=== PATIENT | female | born 1965 | race Caucasian/White ===

== ENCOUNTER 2017-09-05 14:42 | Emergency (ER) | payer OTHER ==
[~2017-09-05 14:42] MED LIST: ALB0.5 INH; ALBU8.5H12 IH; BCP PO; CEPH500C24 PO; CET10 PO; CYC10 PO; CYCL10TA29 PO; DOC100 PO; GAB100 PO; GABA-490 PO; GABA-549; GUALA600 PO; HYDR-4309 PO; IPRA3AMP36 IH; LOR10 PO; LOR5/325 PO; NORG1TAB74 PO; NORG1TAB75; OXYC-865 PO; PER PO; POTASSIUM PO; PRED-1 PO; PRED20TA6 PO; PREDNISONE PO; PROM-110 PO; PSEU-75 PO; RIVA20TA PO; TRAM-420; TRAZ-133 PO; VALA100059; ZOLP-358
--- NOTE | 2017-09-05 14:52 | ER Report ---
History and Physical Time Seen By MD: 14:52 Hx. of Stated Complaint: UPPER CENTER ABD PAIN. PROGRESSIVELY GOTTEN WORSE THE LAST COUPLE DAYS. NOT EATING MUCH. BACK AND FORTH BETWEEN DIARRHEA AND CONSTIPATION. FEVER OF 101 THIS MORNING HPI/ROS CHIEF COMPLAINT: Nausea, vomiting and abdominal pain HISTORY OF PRESENT ILLNESS: This is a 52-year-old female who presents to the emergency department for nausea, vomiting and abdominal pain. Patient states that she had nausea, vomiting and diarrhea about one week ago took some Imodium for her diarrhea now she has firm stools, no blood in the diarrhea or the current from stools. Patient also states that she's had nausea and vomiting however the vomiting has since then resolved but she still has some underlying nausea. She does have right upper quadrant pain, she was told that she had gallbladder sludge a number of years ago. Patient also states that she thought that these were just nerves that she is getting in 3 weeks however today the pain and the nausea are such that she became concerned and decided to come in for further evaluation. Patient also states that she had a fever today and took ibuprofen to help with the aches and the fevers. No rashes, visual changes or any other complaints. REVIEW OF SYSTEMS: Constitutional: As above. Eyes: No discharge. ENT: No sore throat. Cardiovascular: No chest pain, no palpitations. Respiratory: No cough, no shortness of breath. Gastrointestinal: As above. Genitourinary: No hematuria. Musculoskeletal: No back pain. Skin: No rashes. Neurological: No headache. Allergies: Coded Allergies: oxaprozin (Verified Adverse Reaction, Unknown, 09/05/17) Uncoded Allergies: steri strips (Allergy, Intermediate, UNKNOWN, 10/17/13) SUN SENITIVITY (Allergy, Mild, RASH, 07/21/12) TAPE, ESPECIALLY PAPER (Allergy, Mild, RASH, 07/21/12) TEGADERM (Allergy, Mild, BLISTERS, 07/21/12) Home Meds Reported Medications Apixaban (ELIQUIS) 5 Mg Tablet, 5 MG PO BID 09/05/17 Valacyclovir Hcl (VALACYCLOVIR) 1,000 Mg Tablet, #2 07/06/16 Norgestimate-Ethinyl Estradiol (TRI-SPRINTEC) 1 Each Tablet, #28 07/06/16 Zolpidem Tartrate (ZOLPIDEM TARTRATE) 10 Mg Tablet, #30 07/06/16 Cetirizine Hcl (Zyrtec) 10 Mg Tab, 10 MG PO QDAY 07/21/12 Albuterol Sulfate (Albuterol Sulfate Hfa) 8.5 Gm Hfa.aer.ad, 8.5 GM IH PRN 07/21/12 Trazodone Hcl (Trazodone Hcl) 100 Mg Tablet, 25 MG PO QHS, 0 Refills 09/25/10 Cyclobenzaprine Hcl (Flexeril) 10 Mg Tab, 10 MG PO QAM, 0 Refills 09/25/10 Discontinued Reported Medications Rivaroxaban 20 Mg (XARELTO 20 MG) 20 Mg Tablet, PO QDAY, TAB 07/06/16 Tramadol Hcl (TRAMADOL HCL) 50 Mg Tablet 07/06/16 Gabapentin (GABAPENTIN) 300 Mg Capsule 07/06/16 Past Medical/Surgical History Patient has a past medical and surgical history of one episode of A. fib secondary to surgery, Follett filter, asthma, cyst on breast, scoliosis, dentures, wears contacts, hernia repair 2, 3 back surgeries. Reviewed Nurses Notes: Yes Hx Smoking: No Smoking Status: Never Smoker Hx Substance Use Disorder: No Hx Alcohol Use: No Constitutional Vital Sign - Last 24 Hours 09/05/17 09/05/17 14:49 18:09 Temp 97.6 Pulse 97 78 Resp 14 16 B/P (MAP) 146/87 119/79 (92) Pulse Ox 97 97 O2 Delivery Room Air Room Air Intake and Output 09/05/17 09/05/17 09/06/17 15:00 23:00 07:00 Intake Total 1000 ml Balance 1000 ml Physical Exam General Appearance: The patient is alert, has no immediate need for airway protection and no signs of toxicity. Eyes: Pupils equal and round no pallor or injection. ENT, Mouth: Mucous membranes are moist. Respiratory: There are no retractions, lungs are clear to auscultation. Cardiovascular: Regular rate and rhythm, no murmurs, clicks or rubs. Gastrointestinal: Abdomen is soft, positive Saavedra sign. No masses, hyperactive bowel sounds. Neurological: Alert and oriented 4. Moving all extremities. Following all commands. No focal neuro deficits. Skin: Warm and dry, no rashes. Musculoskeletal: Neck is supple non tender. Extremities are nontender, nonswollen and have full range of motion. DIFFERENTIAL DIAGNOSIS: After history and physical exam differential diagnosis was considered for abdominal pain in a female including but not limited to ovarian cyst, pelvic inflammatory disease, gallbladder disease, gastroenteritis , ovarian torsion, urinary tract infection, and appendicitis. Medical Decision Making Data Points Result Diagram: 09/05/17 1510 09/05/17 1510 Laboratory Hematology Test 09/05/17 15:10 Red Blood Count 4.46 M/uL (4.17-5.56) Mean Corpuscular Volume 84.8 fL (80.0-96.0) Mean Corpuscular Hemoglobin 28.3 pg (26.0-33.0) Mean Corpuscular Hemoglobin Concent 33.4 g/dL (32.0-36.0) Red Cell Distribution Width 14.9 % (11.5-14.5) Mean Platelet Volume 7.2 fL (7.2-11.1) Neutrophils (%) (Auto) 54.9 % (39.4-72.5) Lymphocytes (%) (Auto) 34.8 % (17.6-49.6) Monocytes (%) (Auto) 8.4 % (4.1-12.4) Eosinophils (%) (Auto) 1.2 % (0.4-6.7) Basophils (%) (Auto) 0.7 % (0.3-1.4) Nucleated RBC Relative Count (auto) 0.0 /100WBC Neutrophils # (Auto) 3.5 K/uL (2.0-7.4) Lymphocytes # (Auto) 2.2 K/uL (1.3-3.6) Monocytes # (Auto) 0.5 K/uL (0.3-1.0) Eosinophils # (Auto) 0.1 K/uL (0.0-0.5) Basophils # (Auto) 0.0 K/uL (0.0-0.1) Nucleated RBC Absolute Count (auto) 0.00 K/uL Urine Color Yellow Urine Clarity Slightly-cloudy Urine pH 5.0 pH (4.8-9.5) Urine Specific [place] 1.011 Urine Protein Negative mg/dL (NEGATIVE) Urine Glucose (UA) Negative mg/dL (NEGATIVE) Urine Ketones Negative mg/dL (NEGATIVE) Urine Blood Small (NEGATIVE) Urine Nitrite Negative (NEGATIVE) Urine Bilirubin Negative (NEGATIVE) Urine Urobilinogen Negative mg/dL (0.2-1.9) Urine Leukocyte Esterase Negative (NEGATIVE) Urine RBC 1 /HPF (0-2/HPF) Urine WBC <1 /HPF (0-5/HPF) Urine Squamous Epithelial Cells Many /LPF (</=FEW) Urine Bacteria Negative /HPF (NONE-FEW) Urine Mucus Few /HPF (NONE-FEW) Sodium Level 139 mmol/L (137-145) Potassium Level 3.8 mmol/L (3.5-5.0) Chloride Level 107 mmol/L (98-107) Carbon Dioxide Level 23 mmol/L (22-31) Blood Urea Nitrogen 15 mg/dl (7-18) Creatinine 0.70 mg/dl (0.52-1.04) Glomerular Filtration Rate Calc > 60.0 Random Glucose 117 mg/dl (75-110) Calcium Level 9.1 mg/dl (8.4-10.2) Total Bilirubin 0.3 mg/dl (0.2-1.3) Aspartate Amino Transf (AST/SGOT) 17 U/L (0-35) Alanine Aminotransferase (ALT/SGPT) 20 U/L (0-56) Alkaline Phosphatase 84 U/L (0-126) Total Protein 6.9 g/dl (6.3-8.2) Albumin 3.5 g/dl (3.5-5.0) Lipase 69 U/L (23-300) Chemistry Test 09/05/17 15:10 White Blood Count 6.4 k/uL (4.5-11.0) Red Blood Count 4.46 M/uL (4.17-5.56) Hemoglobin 12.6 g/dL (12.0-16.0) Hematocrit 37.8 % (34.0-47.0) Mean Corpuscular Volume 84.8 fL (80.0-96.0) Mean Corpuscular Hemoglobin 28.3 pg (26.0-33.0) Mean Corpuscular Hemoglobin Concent 33.4 g/dL (32.0-36.0) Red Cell Distribution Width 14.9 % (11.5-14.5) Platelet Count 374 K/uL (150-450) Mean Platelet Volume 7.2 fL (7.2-11.1) Neutrophils (%) (Auto) 54.9 % (39.4-72.5) Lymphocytes (%) (Auto) 34.8 % (17.6-49.6) Monocytes (%) (Auto) 8.4 % (4.1-12.4) Eosinophils (%) (Auto) 1.2 % (0.4-6.7) Basophils (%) (Auto) 0.7 % (0.3-1.4) Nucleated RBC Relative Count (auto) 0.0 /100WBC Neutrophils # (Auto) 3.5 K/uL (2.0-7.4) Lymphocytes # (Auto) 2.2 K/uL (1.3-3.6) Monocytes # (Auto) 0.5 K/uL (0.3-1.0) Eosinophils # (Auto) 0.1 K/uL (0.0-0.5) Basophils # (Auto) 0.0 K/uL (0.0-0.1) Nucleated RBC Absolute Count (auto) 0.00 K/uL Urine Color Yellow Urine Clarity Slightly-cloudy Urine pH 5.0 pH (4.8-9.5) Urine Specific [place] 1.011 Urine Protein Negative mg/dL (NEGATIVE) Urine Glucose (UA) Negative mg/dL (NEGATIVE) Urine Ketones Negative mg/dL (NEGATIVE) Urine Blood Small (NEGATIVE) Urine Nitrite Negative (NEGATIVE) Urine Bilirubin Negative (NEGATIVE) Urine Urobilinogen Negative mg/dL (0.2-1.9) Urine Leukocyte Esterase Negative (NEGATIVE) Urine RBC 1 /HPF (0-2/HPF) Urine WBC <1 /HPF (0-5/HPF) Urine Squamous Epithelial Cells Many /LPF (</=FEW) Urine Bacteria Negative /HPF (NONE-FEW) Urine Mucus Few /HPF (NONE-FEW) Glomerular Filtration Rate Calc > 60.0 Calcium Level 9.1 mg/dl (8.4-10.2) Total Bilirubin 0.3 mg/dl (0.2-1.3) Aspartate Amino Transf (AST/SGOT) 17 U/L (0-35) Alanine Aminotransferase (ALT/SGPT) 20 U/L (0-56) Alkaline Phosphatase 84 U/L (0-126) Total Protein 6.9 g/dl (6.3-8.2) Albumin 3.5 g/dl (3.5-5.0) Lipase 69 U/L (23-300) Urinalysis Test 09/05/17 15:10 Urine Color Yellow Urine Clarity Slightly-cloudy Urine pH 5.0 pH (4.8-9.5) Urine Specific [place] 1.011 Urine Protein Negative mg/dL (NEGATIVE) Urine Glucose (UA) Negative mg/dL (NEGATIVE) Urine Ketones Negative mg/dL (NEGATIVE) Urine Blood Small (NEGATIVE) Urine Nitrite Negative (NEGATIVE) Urine Bilirubin Negative (NEGATIVE) Urine Urobilinogen Negative mg/dL (0.2-1.9) Urine Leukocyte Esterase Negative (NEGATIVE) Urine RBC 1 /HPF (0-2/HPF) Urine WBC <1 /HPF (0-5/HPF) Urine Squamous Epithelial Cells Many /LPF (</=FEW) Urine Bacteria Negative /HPF (NONE-FEW) Urine Mucus Few /HPF (NONE-FEW) EKG/Imaging Imaging Location: [facility] - [place] Patient: Emily Garibay : 1965 Visit/Account:[id number] [facility] of [facility]: 09/05/2017 ABDOMEN/PELVIS WITH CONTRAST COMPARISONS: None. ADDITIONAL PERTINENT HISTORY: Abdominal pain with nausea and vomiting and diarrhea. TECHNIQUE: Multiple axial images were obtained from the lung bases through the lesser trochanters before and after the IV administration of IV contrast. One of the following dose optimization techniques was utilized in the performance of this exam: Automated exposure control; adjustment of the mA and/or kV according to the patient's size; or use of an iterative reconstruction technique. Specific details can be referenced in the facility's radiology CT exam operational policy. CONTRAST: 75 ml of Isovue-370 FINDINGS: Lung bases: Negative. Free air and free fluid: None. Liver: Negative. Spleen: Negative. Kidneys, ureters and urinary bladder: Negative. Adrenal glands: Negative. Pancreas: Negative. Gallbladder: Negative. Bowel and mesentery: Increased stool noted along the colon. Otherwise negative. Pelvic contents: Negative Lymph node assessment: Negative. Retroperitoneum: Negative. Abdominal vasculature: Left common femoral vein and iliac vein stent on the left. Otherwise negative Surrounding soft tissues: Negative. Osseous structures: Extensive postoperative changes with posterior interbody fusion of the lumbar spine. No acute appearing bony abnormalities. IMPRESSION: 1. Increased stool compatible with underlying constipation. 2. No acute intra-abdominal or intrapelvic process. Report Dictated By: Dontae Jama MD at 09/05/2017 5:34 PM Report E-Signed By: Dontae Jama MD at 09/05/2017 5:38 PM WSN:[id number] Location: [facility] - [place] Patient: Emily Garibay : 1965 Visit/Account:[id number] Date of Sevice: 09/05/2017 EXAMINATION: Limited right upper quadrant ultrasound Additional Pertinent history: Abdominal pain. COMPARISON STUDIES: None. FINDINGS: Gallbladder: no stones, sludge, wall thickening or pericholecystic fluid. Negative sonographic Saavedra's sign. Liver: No focal abnormality. Portal vein is patent. No ascites. Common duct: normal 4.7 mm. Pancreas: Portion the pancreas visualized is within normal is. The distal portion obscured by bowel gas. Right kidney: negative Proximal IVC/Aorta: negative IMPRESSION: Unremarkable exam. No acute abnormality. Report Dictated By: Pavan Soler at 09/05/2017 5:03 PM Report E-Signed By: Pavan Soler at 09/05/2017 5:05 PM WSN:[id number] ED Course/Re-evaluation Clinical Indication for ER IV: Hydration, IV Access ED Course The patient was admitted to a room. A history of physical obtained. Differential diagnoses were considered. An IV was started. A CBC, CMP, lipase were obtained. UA was obtained. UA unremarkable. Lab studies unremarkable.Negative gallbladder ultrasound. Abdomen pelvis CT showing constipation otherwise unremarkable CT. Patient was given a 1 L normal saline bolus, 4 mg IV Zofran, 4 mg IV morphine which did seem to help the pain. I did review the lab studies and the ultrasound and CT with the patient. I did tell her that the CT as showing constipation. I did offer the patient an enema in the emergency department she did decline. I did send her home with bottle of mag citrate. Also instructed the patient follow up with her primary care as scheduled. Return to the emergency department for any other concerns or worsening symptoms. Patient exposed understanding of was discharged home. 09/05/2017 6:00:32 pm I did review the CT results with the patient, did tell her that she has constipation which is likely the cause of her pain and bloating. It tell patient that we can give her an enema here and the patient declined. I then offered her mag citrate to take when she gets home, the patient is agreeable to this. Decision to Disposition Date: Sep 05, 2017 Decision to Disposition Time: 18:01 Depart Departure Latest Vital Signs Vital Signs Date Time Temp Pulse Resp B/P (MAP) Pulse Ox O2 Delivery O2 Flow Rate FiO2 09/05/17 18:09 78 16 119/79 (92) 97 Room Air 09/05/17 14:49 97.6 Impression: Primary Impression: Constipation Condition: Improved Disposition: HOME OR SELF-CARE Referrals: ROSALVA WIGGINS MD (PCP) Patient Instructions: Constipation (ED) Additional Instructions: Your abdominal pain appears to be consistent with constipation as noted on the CAT scan. When you get home be sure to take the mag situate as directed. Drink plenty of water. Get plenty of rest. Follow-up with your primary care provider within one week for reevaluation. Continue with your current medications. Return to the emergency department for any other concerns or worsening symptoms. Problem Qualifiers Primary Impression: Constipation Constipation type: drug induced constipation Qualified Codes: K59.03 - Drug induced constipation KAMERON MUHAMMAD TRAIN BRAKER-BC Sep 05, 2017 14:52
[2017-09-05] MEDS ORDERED: APIX5TAB PO (14:54)
[2017-09-05] MEDS ORDERED: NS(*) 0.9% 1000 ML BAG 1,000 ML IV ONE (15:06)
[2017-09-05] MEDS ORDERED: ONDANSETRON 4 MG/2 ML VIAL IVP ONE (15:10)
[2017-09-05] MEDS ORDERED: MORPHINE 4 MG/ML SDV IVP ONE (15:10)
[2017-09-05 15:18] LABS: PLATELET COUNT, AUTOMATED 374 K/uL (150-450)
[2017-09-05] MEDS ORDERED: IOPAMIDOL 76% 100 ML INFUS BTL 100 ML ONE (17:09)
--- NOTE | 2017-09-05 17:09 | RADIOLOGY IMAGING REPORT ---
FACILITY: [facility] - [place] PATIENT NAME: Emily Garibay : 1965 MR: [id number] V: [id number] EXAM DATE: ORDERING PHYSICIAN: KAMERON MUHAMMAD TECHNOLOGIST: Location: [facility] [place] Patient: Emily Garibay : 1965 Visit/Account:[id number] Date of Sevice: 09/05/2017 EXAMINATION: Limited right upper quadrant ultrasound Additional Pertinent history: Abdominal pain. COMPARISON STUDIES: None. FINDINGS: Gallbladder: no stones, sludge, wall thickening or pericholecystic fluid. Negative sonographic Saavedra 's sign. Liver: No focal abnormality. Portal vein is patent. No ascites. Common duct: normal 4.7 mm. Pancreas: Portion the pancreas visualized is within normal is. The distal portion obscured by bowel g as. Right kidney: negative Proximal IVC/Aorta: negative IMPRESSION: Unremarkable exam. No acute abnormality. Report Dictated By: Pavan Soler at 09/05/2017 5:03 PM Report E-Signed By: Pavan Soler at 09/05/2017 5:05 PM WSN:[id number]
--- NOTE | 2017-09-05 17:41 | RADIOLOGY IMAGING REPORT ---
FACILITY: [facility] - [place] PATIENT NAME: Emily Garibay : 1965 MR: [id number] V: [id number] EXAM DATE: ORDERING PHYSICIAN: KAMERON MUHAMMAD TECHNOLOGIST: Location: [facility] - [place] Patient: Emily Garibay : 1965 Visit/Account:[id number] Date of Sevice: 09/05/2017 ABDOMEN/PELVIS WITH CONTRAST COMPARISONS: None. ADDITIONAL PERTINENT HISTORY: Abdominal pain with nausea and vomiting and diarrhea. TECHNIQUE: Multiple axial images were obtained from the lung bases through the lesser trochanters bef ore and after the IV administration of IV contrast. One of the following dose optimization technique s was utilized in the performance of this exam: Automated exposure control; adjustment of the mA and/ or kV according to the patient's size; or use of an iterative reconstruction technique. Specific de tails can be referenced in the facility's radiology CT exam operational policy. CONTRAST: 75 ml of Isovue-370 FINDINGS: Lung bases: Negative. Free air and free fluid: None. Liver: Negative. Spleen: Negative. Kidneys, ureters and urinary bladder: Negative. Adrenal glands: Negative. Pancreas: Negative. Gallbladder: Negative. Bowel and mesentery: Increased stool noted along the colon. Otherwise negative. Pelvic contents: Negative Lymph node assessment: Negative. Retroperitoneum: Negative. Abdominal vasculature: Left common femoral vein and iliac vein stent on the left. Otherwise negative Surrounding soft tissues: Negative. Osseous structures: Extensive postoperative changes with posterior interbody fusion of the lumbar spi ne. No acute appearing bony abnormalities. IMPRESSION: 1. Increased stool compatible with underlying constipation. 2. No acute intra-abdominal or intrapelvic process. Report Dictated By: Dontae Jama MD at 09/05/2017 5:34 PM Report E-Signed By: Dontae Jama MD at 09/05/2017 5:38 PM WSN:[id number]
[2017-09-05] MEDS ORDERED: MAGNESIUM CITRATE 300 ML BTL PO ONE (18:05)
[2017-09-05 18:09] VITALS: BP 119/79
== END 2017-09-05 18:10 | disposition home or self-care (01) ==
LOC: ER 14:50
DX: K59.03 Drug induced constipation (principal)
CPT/HCPCS: 74177; 76705; 81001; 83690; 85025; 96361; 96374; 96375; 99284; J2270; J2405; J7030; Q9967; 82040; 82247; 82310; 82374; 82435; 82565; 82947; 84075; 84132; 84155; 84295; 84450; 84460; 84520

== ENCOUNTER 2018-01-13 11:18 | Emergency (ER) | payer OTHER ==
[~2018-01-13 11:18] MED LIST changes: +APIX5TAB PO; -HYDR-4309 PO; +HYDR-653 PO
--- NOTE | 2018-01-13 11:25 | ER Report ---
History and Physical Time Seen By MD: 11:25 HPI/ROS CHIEF COMPLAINT: Left lower extremity swelling and pain HISTORY OF PRESENT ILLNESS: Patient is a 52-year-old female here with complaints of left lower extremity swelling and pain in the setting of eliquis with a prior history of recurrent DVTs. Patient reports that she has recently been getting over pneumonia. She denies new chest pain or shortness of breath however reports pain directly behind the left knee and the proximal calf. Patient is neurovascularly intact with good perfusion distal to site of pain. Patient is afebrile, hemodynamically stable in no acute distress. REVIEW OF SYSTEMS: Constitutional: No fever, no chills. Eyes: No discharge. ENT: No sore throat. Cardiovascular: No chest pain, no palpitations. Respiratory: No cough, no shortness of breath. Gastrointestinal: No abdominal pain, no vomiting. Genitourinary: No hematuria. Musculoskeletal: Left lower extremity pain and swelling distal to the knee. Skin: No rashes. Neurological: Neurovascularly intact in the left lower extremity distal to the pain site. Allergies: Coded Allergies: oxaprozin (Verified Adverse Reaction, Unknown, 01/13/18) Uncoded Allergies: steri strips (Allergy, Intermediate, UNKNOWN, 10/17/13) SUN SENITIVITY (Allergy, Mild, RASH, 07/21/12) TAPE, ESPECIALLY PAPER (Allergy, Mild, RASH, 07/21/12) TEGADERM (Allergy, Mild, BLISTERS, 07/21/12) Home Meds Reported Medications Sertraline Hcl (ZOLOFT) 100 Mg Tablet, 1 TAB PO QDAY, TAB 01/13/18 Montelukast Sodium 4 Mg Chew Tab (SINGULAIR 4 MG CHEW TAB) 4 Mg Tab.chew, 1 TAB PO QDAY, TAB.CHEW 01/13/18 Apixaban (ELIQUIS) 5 Mg Tablet, 5 MG PO BID 09/05/17 Valacyclovir Hcl (VALACYCLOVIR) 1,000 Mg Tablet, #2 07/06/16 Zolpidem Tartrate (ZOLPIDEM TARTRATE) 10 Mg Tablet, #30 07/06/16 Cetirizine Hcl (Zyrtec) 10 Mg Tab, 10 MG PO QDAY 07/21/12 Albuterol Sulfate (Albuterol Sulfate Hfa) 8.5 Gm Hfa.aer.ad, 8.5 GM IH PRN 07/21/12 Trazodone Hcl (Trazodone Hcl) 100 Mg Tablet, 25 MG PO QHS, 0 Refills 09/25/10 Cyclobenzaprine Hcl (Flexeril) 10 Mg Tab, 10 MG PO QAM, 0 Refills 09/25/10 Discontinued Reported Medications Norgestimate-Ethinyl Estradiol (TRI-SPRINTEC) 1 Each Tablet, #28 07/06/16 Hx Smoking: No Smoking Status: Never Smoker Hx Substance Use Disorder: No Hx Alcohol Use: No Constitutional Vital Sign - Last 24 Hours 01/13/18 11:28 Temp 97.9 Pulse 91 Resp 16 B/P (MAP) 134/88 Pulse Ox 100 O2 Delivery Room Air Physical Exam General Appearance: The patient is alert, has no immediate need for airway protection and no signs of toxicity. Eyes: Pupils equal and round no pallor or injection. ENT, Mouth: Mucous membranes are moist. Respiratory: There are no retractions, lungs are clear to auscultation. Cardiovascular: Regular rate and rhythm. Gastrointestinal: Abdomen is soft and non tender, no masses, bowel sounds normal. Neurological: Neurovascular exam intact in the distal extremities Skin: Warm and dry, no rashes. Musculoskeletal: Neck is supple non tender. Edema and tender to palpation distal to the left knee with point of maximum tenderness in the proximal left calf, popliteal fossa DIFFERENTIAL DIAGNOSIS: After history and physical exam differential diagnosis was considered for DVT, cellulitis, thrombophlebitis, abscess, bursitis Medical Decision Making EKG/Imaging Imaging See radiology duplex report ED Course/Re-evaluation ED Course Patient is a 52-year-old female here with complaints of left lower extremity swelling and pain just distal to the popliteal fossa in the setting of a DVT history on eloquent edwin Tatum. Patient also has an IVC filter in place. Ultrasound duplex of the left lower extremity shows that the vasculature was almost completely collapsible with a small area of near complete collapsibility. Distal extremity has good perfusion with capillary refill less than 2 seconds, intact sensation with no skin discoloration. I updated the patient and she vo iced understanding that there was likely no need for further intervention at this time. I advised the patient to continue using SCDs and return promptly should develop any fevers, redness of the skin, numbness or weakness. Decision to Disposition Date: Jan 13, 2018 Decision to Disposition Time: 12:11 Depart Departure Latest Vital Signs Vital Signs Date Time Temp Pulse Resp B/P (MAP) Pulse Ox O2 Delivery O2 Flow Rate FiO2 01/13/18 11:28 97.9 91 16 134/88 100 Room Air Impression: Primary Impression: Leg pain, left Additional Impression: Left leg swelling Condition: Improved Disposition: HOME OR SELF-CARE Referrals: ROSALVA WIGGINS MD (PCP) Patient Instructions: Leg Pain (ED) Additional Instructions: Please drink plenty of water. Please follow-up with her family doctor in the next several days for follow-up evaluation and care. Please return promptly if you develop numbness, tingling, worsening pain, redness or discoloration of the leg. Problem Qualifiers DANUTA RAYA DO Jan 13, 2018 11:25
[2018-01-13 11:28] VITALS: BP 134/88
[2018-01-13] MEDS ORDERED: MONT4TAB PO (11:31)
[2018-01-13] MEDS ORDERED: SERT-173 PO (11:31)
--- NOTE | 2018-01-13 12:25 | RADIOLOGY IMAGING REPORT ---
[place] [facility] [place]: Emily Garibay : 1965 MR: [id number] V: [id number] EXAM DATE: ORDERING PHYSICIAN: DANUTA RAYA TECHNOLOGIST: Location: [facility] Patient: Emily Garibay : 1965 Visit/Account:[id number] Date of Sevice: 01/13/2018 VENOUS DOPP LOW LEFT EXTREMITY HISTORY: swelling, dvt hx VENOUS DOPP LOW LEFT EXTREMITY EXAMINATION: Unilateral lower extremity deep vein duplex Doppler ultrasound Additional Pertinent history: none COMPARISON STUDIES: none FINDINGS: Grayscale compression, duplex and color Doppler interrogation of the left lower extremity deep veins from common femoral vein to proximal calf was performed. The greater saphenous vein was evaluated usi ng similar technique. Common femoral vein negative Femoral vein negative Deep femoral vein - negative Popliteal vein small focus of noncompressible clot in the distal popliteal vein. Visualized deep calf veins negative Greater saphenous vein in the proximal thigh negative Popliteal fossa: negative IMPRESSION: 1. Negative left leg for DVT except in the distal popliteal artery has a small focus of noncompressib le clot.. Report Dictated By: Keenan Membreno MD at 01/13/2018 12:17 PM Report E-Signed By: Keenan Membreno MD at 01/13/2018 12:20 PM WSN:[id number]
== END 2018-01-13 12:30 | disposition home or self-care (01) ==
LOC: ER 11:27
DX: M79.662 Pain in left lower leg (principal); M79.89 Other specified soft tissue disorders; Z86.718 Personal history of other venous thrombosis and embolism; Z79.01 Long term (current) use of anticoagulants

== ENCOUNTER → 2018-07-05 | Outpatient (CLI) | payer OTHER ==
[~2018-07-05] MED LIST changes: +MONT4TAB PO; +SERT-173 PO
--- NOTE | 2018-07-05 13:28 | RADIOLOGY IMAGING REPORT ---
FACILITY: [facility] [place] PATIENT NAME: Emily Ko : 1965 MR: [id number] V: [id number] EXAM DATE: ORDERING PHYSICIAN: JAY MOREIRA TECHNOLOGIST: Location: [facility] Patient: Emily Ko : 1965 Visit/Account:[id number] Date of Sevice: 07/05/2018 EXAMINATION: MR SPINE CERVICAL W/O CON INDICATION: Pain COMPARISON: October 09, 2010 MR TECHNIQUE: Multiplane MR imaging was performed through the cervical spine without contrast. FINDINGS: Vertebral bodies and posterior elements: Normal vertebral body heights. Anterior fusion hardware at C5-C7 is new. Cord signal: Normal Marrow signal: Normal Prevertebral and paraspinal soft tissues: Normal C2-3: 3 mm anterolisthesis of C2 on C3 has increased. No disc protrusion or canal narrowing. Modera te to severe left facet arthropathy has progressed. Mild unchanged left foraminal narrowing, otherwi se normal. C3-4: 2 mm anterolisthesis of C3 on C4 has increased. No disc protrusion. Mild new canal narrowing. Mild unchanged left foraminal narrowing. Moderate right foraminal narrowing has increased. C4-5: Uncovertebral arthropathy has increased. No disc protrusion or canal narrowing. Mild to moder ate right facet arthropathy has increased. Moderate to severe right foraminal narrowing has increase d. Mild unchanged left foraminal narrowing. C5-6: New disc space prosthesis. No disc protrusion. Ligamentum flavum thickening. Mild to moderat e canal narrowing has decreased. No apparent significant foraminal narrowing. C6-7: Resolution of previously seen disc protrusion. New disc prosthesis. Resolution of previously seen canal narrowing. No significant foraminal narrowing. C7-T1: New 2 mm anterolisthesis of C7 on T1. Minimal disc protrusion has increased in size. No kristen l narrowing. Mild unchanged left foraminal narrowing. Moderate facet arthropathy has increased. IMPRESSION: 1. New anterior fusion hardware at C5-C7 and new C5-6 and C6-7 disc space prostheses. 2. Previously seen C5-6 and C6-7 disc protrusions have resolved or been resected. 3. Resolution of previously seen C6-7 canal narrowing. Mild to moderate residual C5-6 canal narrowi ng has decreased compared to prior. 4. Multilevel foraminal narrowing and facet arthropathy has increased at a few levels, see level by level comments above. The foraminal narrowing is most pronounced at the right C4-5 level, see commen ts above. Report Dictated By: Rolando Rdz MD at 07/05/2018 1:08 PM Report E-Signed By: Rolando Rdz MD at 07/05/2018 1:24 PM WSN:[id number]
--- NOTE | 2018-07-05 13:49 | RADIOLOGY IMAGING REPORT ---
FACILITY: [facility] PATIENT NAME: Emily Ko : 1965 MR: [id number] V: [id number] EXAM DATE: ORDERING PHYSICIAN: JAY MOREIRA TECHNOLOGIST: Location: [facility] [place] Patient: Emily Ko : 1965 Visit/Account:[id number] Date of Sevice: 07/05/2018 MR SPINE THORACIC W/O CON INDICATION: Pain COMPARISON: June 12, 2015 MR TECHNIQUE: Multiplane noncontrast MR imaging performed through the thoracic spine. FINDINGS: Minimal unchanged T6, T10 and T11 chronic wedge compression deformities. Unchanged convexity left upper and convexity right lower scoliosis. Normal cord signal. Mild degenerative edema surrounds the T7-8 and T8-9 disc spaces as before. Moderate unchanged T7-8 and T8-9 disc space degeneration. Small unchanged T7-8 and T8-9 disc protrusions result in no significant canal narrowing. Mild unchan ged T9-10 facet arthropathy. The visible extraspinal structures are normal. Mild unchanged bilateral T8-9 foraminal narrowing. Mild unchanged right T9-10 foraminal narrowing. IMPRESSION: 1. Unchanged thoracic scoliosis. 2. Unchanged moderate T7-8 and T8-9 disc space degeneration. 3. Unchanged small T7-8 and T8-9 disc protrusions result in no significant canal narrowing. 4. Mild unchanged T9-10 facet arthropathy. Mild unchanged T8-9 and T9-10 foraminal narrowing, see c omments above. Report Dictated By: Rolando Rdz MD at 07/05/2018 1:34 PM Report E-Signed By: Rolando Rdz MD at 07/05/2018 1:44 PM WSN:[id number]
== END ==
LOC: MRI 08:31
PROVIDERS: ATTEND Family Medicine
DX: M54.2 Cervicalgia (principal)
CPT/HCPCS: 72141; 72146